=== PATIENT | male | born 1990 | race Caucasian/White ===

== ENCOUNTER 2020-04-01 13:09 | Emergency (ER) | payer SELFPAY ==
[~2020-04-01] VITALS: Ht 167.6 cm; Wt 56.8 kg
[2020-04-01 13:12] VITALS: BP 130/89; Ht 167.6 cm; Wt 56.8 kg
== END 2020-04-01 14:19 | disposition home or self-care (01) ==
LOC: D.ER 13:09
DX: S90.121A Contusion of right lesser toe(s) without damage to nail, initial encounter (principal); W22.8XXA Striking against or struck by other objects, initial encounter; Y93.9 Activity, unspecified; Y92.9 Unspecified place or not applicable

== ENCOUNTER 2020-05-17 19:55 | Emergency (ER) | payer MEDICAID ==
[~2020-05-17] VITALS: Ht 167.6 cm; Wt 56.8 kg
[2020-05-17 20:08] VITALS: Ht 167.6 cm; Wt 56.8 kg
[2020-05-17] MEDS ORDERED: CLEOCIN HCL300 MG PO (20:37)
[2020-05-17 20:40] LABS: BASOPHILS 0.3 % (0-2); EOSINOPHILS 2.3 % (0-7); HEMATOCRIT 44.2 % (42.0-54.0); HEMOGLOBIN 14.5 g/dL (13.5-17.5); IMMATURE GRANULOCYTES 0.2 % (0-5); LYMPHOCYTE ABS# 2.67 10x3/uL (1.32-3.57); LYMPHOCYTES 29.8 % (15-50); MCHC 32.8 g/dL (31.0-37.0); MCV 88.4 fL (80.0-100.0); MONOCYTES 9.4 % (2-11); NEUTROPHIL ABS# 5.18 10x3/uL (1.78-5.38); RDW 13.2 % (11.5-14.5)
[2020-05-17 20:43] LABS: PLATELET COUNT 403 10x3/uL (130-400)
[2020-05-17 20:47] LABS: CALC OSMOLALITY 279 mosm/kg (275-300); CALCIUM 9.7 mg/dL (8.5-10.1); CARBON DIOXIDE 30.7 mmol/L (21.0-32.0); CHLORIDE - SERUM 102 mmol/L (98-107); CREATININE - SERUM 1.2 mg/dL (0.6-1.3); POTASSIUM - SERUM 4.3 mmol/L (3.5-5.1); SODIUM 140 mmol/L (136-145); UREA NITROGEN 15 mg/dL (7-18); eGFR NON AFRICAN AMERICAN 75 mL/min (90-120)
[2020-05-17 20:51] LABS: GLUCOSE 103 mg/dL (74-106)
[2020-05-17 20:53] LABS: ALBUMIN 4.1 g/dL (3.4-5.0); ALKALINE PHOSPHATASE 89 U/L (30-120); ALT (SGPT) 23 U/L (10-68); BILIRUBIN - TOTAL 0.44 mg/dL (0.2-1.3); PROTEIN - SERUM 8.6 g/dL (6.4-8.2)
[2020-05-17 22:31] VITALS: BP 142/89
== END 2020-05-17 22:32 | disposition home or self-care (01) ==
LOC: D.ER 19:55
PROVIDERS: Family Medicine
DX: L03.114 Cellulitis of left upper limb (principal); M25.512 Pain in left shoulder